=== PATIENT | female | born 1960 | race Caucasian/White ===

== ENCOUNTER 2019-08-20 19:35 | Emergency (ER) | payer OTHER ==
[~2019-08-20] VITALS: Ht 172.7 cm; Wt 61.2 kg
[2019-08-20] MEDS ORDERED: CELEXA 20 MG TA20 MG PO (19:48)
[2019-08-20 20:48] VITALS: BP 139/76
== END 2019-08-20 20:48 | disposition home or self-care (01) ==
LOC: M.ERS 19:35
DX: H53.8 Other visual disturbances (principal); F41.9 Anxiety disorder, unspecified